=== PATIENT | male | born 1990 | race Two or more races ===

== ENCOUNTER 2017-10-09 10:02 | Emergency (ER) | payer OTHER ==
[2017-10-09] MEDS ORDERED: FENTANYL CITRATE INJ/PF 100 MCG/2 ML AMPUL IM ONE (10:33)
[2017-10-09] MEDS ORDERED: ONDANSETRON 4 MG TAB.RAPDIS PO ONE (10:33)
--- NOTE | 2017-10-09 10:35 | ER Document Report ---
ED Medical Screen (RME) - General Chief Complaint: Abdominal Pain Stated Complaint: ABDOMINAL PIAN Time Seen by Provider: 10/09/17 10:29 Notes: RAPID MEDICAL EVALUATION DISCLOSURE I have seen this patient as part of a Rapid Medical Evaluation and, if applicable, placed any initially appropriate orders. The patient will be seen and fully evaluated, including a full history and physical exam, by a provider ( in Main ED or Fast Track) when a room becomes available. 27-year-old male PMH appendectomy directed to come here by the [place] for evaluation of his abdominal pain vomiting and diarrhea. He states that the symptoms started yesterday with some mild abdominal pain and that the pain has progressively worsened. He has had associated nausea vomiting diarrhea but no fevers chills dysuria hematuria frequency. The pain is not worse with eating. He tried some Tums but this did not help. EXAM Mild to moderate epigastric TTP No peritoneal signs TRAVEL OUTSIDE OF THE [place] IN LAST 30 DAYS: No - Related Data Allergies/Adverse Reactions: No Known Allergies Allergy (Unverified 10/09/17 10:04) Past Medical History - Social History Chew tobacco use (# tins/day): No Frequency of alcohol use: Social Drug Abuse: None Renal/ Medical History: Denies: Hx Peritoneal Dialysis Past Surgical History: Reports: Hx Appendectomy Physical Exam - Vital signs Vitals: Temp Pulse Resp BP Pulse Ox 98.2 F 71 18 138/81 H 99 10/09/17 10:10/09/17 10:10/09/17 10:10/09/17 10:10/09/17 10:09 Course - Vital Signs Vital signs: Temp Pulse Resp BP Pulse Ox 98.2 F 71 18 138/81 H 99 10/09/17 10:10/09/17 10:10/09/17 10:10/09/17 10:10/09/17 10:09
[2017-10-09 11:11] LABS: ABSOLUTE EOSINOPHILS # (AUTO) 0.1 10^3/uL (0.0-0.6); ABSOLUTE LYMPHOCYTES (AUTO) 1.1 10^3/uL (0.5-4.7); ABSOLUTE MONOCYTES (AUTO) 0.3 10^3/uL (0.1-1.4); ABSOLUTE NEUT (AUTO) 7.8 10^3/uL (1.7-8.2); BASOPHILS % (AUTO) 0.2 % (0-2); EOSINOPHILS % (AUTO) 1.2 % (0-6); HEMATOCRIT 43.8 % (37.9-51.0); HEMOGLOBIN 14.9 g/dL (13.5-17.0); LYMPHOCYTES % (AUTO) 12.1 % (13-45); MEAN CORPUSCULAR HEMOGLOBIN 27.9 pg (27.0-33.4); MEAN CORPUSCULAR HGB CONC 33.9 g/dL (32.0-36.0); MEAN CORPUSCULAR VOLUME 82 fl (80-97); MONOCYTES % (AUTO) 3.6 % (3-13); PLATELET COUNT 303 10^3/uL (150-450); RED BLOOD COUNT 5.33 10^6/uL (4.35-5.55); RED CELL DISTRIBUTION WIDTH 13.5 % (11.5-14.0); SEGMENTED NEUTROPHILS % (AUTO) 82.9 % (42-78); TOTAL CELLS COUNTED % (AUTO) 100 %; WHITE BLOOD COUNT 9.3 10^3/uL (4.0-10.5)
[2017-10-09 11:19] LABS: APPEARANCE,URINE CLOUDY; BILIRUBIN,URINE NEGATIVE (NEGATIVE); COLOR,URINE YELLOW; GLUCOSE, URINE NEGATIVE (NEGATIVE); KETONES,URINE NEGATIVE (NEGATIVE); LEUKOCYTE ESTERASE,URINE NEGATIVE (NEGATIVE); NITRITE,URINE NEGATIVE (NEGATIVE); PROTEIN,URINE NEGATIVE (NEGATIVE); UROBILINOGEN,URINE NEGATIVE mg/dL (<2.0)
--- NOTE | 2017-10-09 11:32 | RADIOLOGY REPORT (SQ) ---
EXAM DESCRIPTION: U/S ABDOMEN LIMITED W/O DOP COMPLETED DATE/TIME: 10/09/2017 11:17 am REASON FOR STUDY: epigastric abd pain; eval GB pathology COMPARISON: None. TECHNIQUE: Dynamic and static grayscale images acquired of the abdomen and recorded on PACS. Additio jeanne selected color Doppler and spectral images recorded. LIMITATIONS: Suboptimal visualization. FINDINGS: PANCREAS: Not visualized. LIVER: No masses. Echotexture normal. LIVER VASCULATURE: Normal directional flow of the main portal vein and hepatic veins. GALLBLADDER: No stones. Normal wall thickness. No pericholecystic fluid. ULTRASOUND-DETECTED STEPHENS'S SIGN: Negative. INTRAHEPATIC DUCTS AND COMMON DUCT: CBD and intrahepatic ducts normal caliber. No filling defects. INFERIOR VENA CAVA: Normal flow. AORTA: No aneurysm. RIGHT KIDNEY: Normal size. Normal echogenicity. No solid or suspicious masses. No hydronephrosis. No calcifications. PERITONEAL AND RIGHT PLEURAL SPACE: No ascites or effusions. OTHER: No other significant findings. IMPRESSION: Negative suboptimal right upper quadrant ultrasound. TECHNICAL DOCUMENTATION: JOB ID: [id number] [employer]- All Rights Reserved Reading location - IP/workstation name: [email or web address]
--- NOTE | 2017-10-09 11:37 | ER Document Report ---
ED GI/ - General Chief Complaint: Abdominal Pain Stated Complaint: ABDOMINAL PIAN Time Seen by Provider: 10/09/17 10:29 Mode of Arrival: Ambulatory Information source: Patient Notes: 27 yo male c/o epigastric abd pain with vomiting and diarrhea since last night. No fever or chlls. No recent antibitoics. Hx GERD. Drinks 12 pack 4 times a week. TRAVEL OUTSIDE OF THE [place] IN LAST 30 DAYS: No - Related Data Allergies/Adverse Reactions: No Known Allergies Allergy (Unverified 10/09/17 10:04) Past Medical History - General Information source: Patient - Social History Smoking Status: Never Smoker Chew tobacco use (# tins/day): No Frequency of alcohol use: Heavy Drug Abuse: None Lives with: Family Family History: Reviewed & Not Pertinent Patient has suicidal ideation: No Patient has homicidal ideation: No - Medical History Medical History: Negative Renal/ Medical History: Denies: Hx Peritoneal Dialysis Past Surgical History: Reports: Hx Appendectomy Review of Systems - Review of Systems Constitutional: No symptoms reported EENT: No symptoms reported Cardiovascular: No symptoms reported Respiratory: No symptoms reported Gastrointestinal: See HPI Genitourinary: No symptoms reported Male Genitourinary: No symptoms reported Musculoskeletal: No symptoms reported Skin: No symptoms reported Hematologic/Lymphatic: No symptoms reported Neurological/Psychological: No symptoms reported Physical Exam - Vital signs Vitals: Temp Pulse Resp BP Pulse Ox 98.2 F 71 18 138/81 H 99 10/09/17 10:09 10/09/17 10:09 10/09/17 10:09 10/09/17 10:09 10/09/17 10:09 Interpretation: Normal - General General appearance: Appears well, Alert - HEENT Head: Normocephalic, Atraumatic Eyes: Normal Pupils: PERRL Mucous membranes: Dry Neck: Supple. No: Lymphadenopathy - Respiratory Respiratory status: No respiratory distress Chest status: Nontender Breath sounds: Normal Chest palpation: Normal - Cardiovascular Rhythm: Regular Heart sounds: Normal auscultation Murmur: No - Abdominal Inspection: Normal Distension: No distension Bowel sounds: Normal Tenderness: Tender - epigastrum Organomegaly: No organomegaly. No: Hepatomegaly - Back Back: Normal, Nontender. No: CVA tenderness - Extremities General upper extremity: Normal inspection, Nontender, Normal color, Normal ROM , Normal temperature General lower extremity: Normal inspection, Nontender, Normal color, Normal ROM , Normal temperature, Normal weight bearing. No: Melissa's sign - Neurological Neuro grossly intact: Yes Cognition: Normal Orientation: AAOx4 Dwight Coma Scale Eye Opening: Spontaneous Lefty Coma Scale Verbal: Oriented Lefty Coma Scale Motor: Obeys Commands Lefty Coma Scale Total: 15 Speech: Normal Motor strength normal: LUE, RUE, LLE, RLE Sensory: Normal - Psychological Associated symptoms: Normal affect, Normal mood - Skin Skin Temperature: Warm Skin Moisture: Dry Skin Color: Normal Skin irregularity: negative: Rash Course - Re-evaluation Re-evalutation: 10/09/17 12:30 IV infusing he feels much better after the medicines. labs and US negative. 10/10/17 07:49 - Vital Signs Vital signs: Temp Pulse Resp BP Pulse Ox 98.2 F 78 16 128/74 H 100 10/09/17 13:17 10/09/17 13:17 10/09/17 13:17 10/09/17 13:17 10/09/17 13:17 - Laboratory Result Diagrams: 10/09/17 10:42 10/09/17 10:42 Laboratory results interpreted by me: 10/09/17 10/09/17 10:42 10:42 Seg Neutrophils % 82.9 H Lymphocytes % 12.1 L Total Protein 8.8 H Discharge - Discharge Clinical Impression: Epigastric abdominal pain, Excessive alcohol use, Gastritis, Vomiting and diarrhea Condition: Good Disposition: HOME, SELF-CARE Instructions: Antinausea Medication ([facility]), Diarrhea, Nonspecific ([facility]), Evaluation of Upper Abdominal Pain ([facility]), Gastritis ([facility]), Nausea or Vomiting, Nonspecific ([facility]), Prilosec (Acid Pump Inhibitor) ([facility]) Additional Instructions: 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
[2017-10-09 11:44] LABS: ALANINE AMINOTRANSFERASE 39 U/L (21-72); ALBUMIN 4.8 g/dL (3.5-5.0); ALKALINE PHOSPHATASE 78 U/L (38-126); ANION GAP 15 (5-19); ASPARTATE AMINO TRANSFERASE 30 U/L (17-59); BILIRUBIN,DIRECT 0.3 mg/dL (0.0-0.4); BILIRUBIN,TOTAL 0.5 mg/dL (0.2-1.3); BLOOD UREA NITROGEN 13 mg/dL (7-20); CALCIUM 10.1 mg/dL (8.4-10.2); CARBON DIOXIDE 27 mmol/L (22-30); CHLORIDE 101 mmol/L (98-107); GLUCOSE 109 mg/dL (75-110); LIPASE 53.9 U/L (23-300); POTASSIUM 4.3 mmol/L (3.6-5.0); SODIUM 142.6 mmol/L (137-145); TOTAL PROTEIN 8.8 g/dL (6.3-8.2)
[2017-10-09] MEDS ORDERED: LANSOPRAZOLE 30 MG TAB.RAP.DR PO ONE (11:57)
[2017-10-09] MEDS ORDERED: LIDOCAINE 2% VISCOUS SOLN 20 ML UDCUP PO ONE (11:57)
[2017-10-09] MEDS ORDERED: MAG HYDROX/AL HYDROX/SIMETH SUSP 30 ML UDCUP PO ONE (11:57)
[2017-10-09] MEDS ORDERED: NORMAL SALINE 1000 ML 2,000 ML IV ONE (12:02)
[2017-10-09 13:18] VITALS: BP 128/74
== END 2017-10-09 13:20 | disposition home or self-care (01) ==
LOC: ER 10:02
DX: R10.13 Epigastric pain (principal); K29.70 Gastritis, unspecified, without bleeding; R11.10 Vomiting, unspecified; R19.7 Diarrhea, unspecified; Z72.89 Other problems related to lifestyle
CPT/HCPCS: 99284; 96372; 96360; 36415; 83690; 85025; 80053; 81001; 76705; S0119; J3010; J3490; J7030

== ENCOUNTER 2017-10-10 00:23 | Emergency (ER) | payer OTHER ==
[2017-10-10] MEDS ORDERED: SUCRALFATE SUSP 1 GM/10 ML UDCUP PO ONE (01:21)
[2017-10-10] MEDS ORDERED: LIDOCAINE 2% VISCOUS SOLN 20 ML UDCUP PO ONE (01:21)
[2017-10-10] MEDS ORDERED: METOCLOPRAMIDE HCL ORAL SOLN 10 MG/10 ML UDCUP PO ONE (01:21)
[2017-10-10] MEDS ORDERED: MAG HYDROX/AL HYDROX/SIMETH SUSP 30 ML UDCUP PO ONE (01:21)
--- NOTE | 2017-10-10 01:26 | ER Document Report ---
ED GI/ - General Chief Complaint: Abdominal Pain Stated Complaint: ABDOMINAL PAIN Time Seen by Provider: 10/10/17 01:14 Notes: The patient is a 27-year-old male, past medical history gastritis, appendectomy , presents with 2 days of epigastric pain, nausea and vomiting. He was seen earlier in the day for similar symptoms, given a GI cocktail and was feeling much better. His blood work was normal earlier today. The symptoms returned tonight. He took omeprazole, Prevacid and Tums earlier tonight without much relief of his symptoms. The symptoms started after drinking orange juice and patient does drink alcohol. Patient denies diarrhea, fevers, back pain, right upper quadrant abdominal pain or hematemesis. TRAVEL OUTSIDE OF THE [place] IN LAST 30 DAYS: No - Related Data Allergies/Adverse Reactions: No Known Allergies Allergy (Unverified 10/09/17 10:04) Past Medical History - General Information source: Patient - Social History Smoking Status: Unknown if Ever Smoked Frequency of alcohol use: Occasional Family History: Reviewed & Not Pertinent Renal/ Medical History: Denies: Hx Peritoneal Dialysis Past Surgical History: Reports: Hx Appendectomy Review of Systems - Review of Systems Notes: REVIEW OF SYSTEMS: CONSTITUTIONAL: -fevers, -chills EENT: -eye pain, -difficulty swallowing, -nasal congestion CARDIOVASCULAR: -chest pain, -syncope. RESPIRATORY: -cough, -SOB GASTROINTESTINAL: +epigastric abdominal pain, +nausea, +vomiting, +diarrhea GENITOURINARY: -dysuria, -hematuria MUSCULOSKELETAL: -back pain, -neck pain SKIN: -rash or skin lesions. HEMATOLOGIC: -easy bruising or bleeding. LYMPHATIC: -swollen, enlarged glands. NEUROLOGICAL: -altered mental status or loss of consciousness, -headache, - neurologic symptoms PSYCHIATRIC: -anxiety, -depression. ALL OTHER SYSTEMS REVIEWED AND NEGATIVE. Physical Exam - Vital signs Vitals: Temp Pulse Resp BP Pulse Ox 97.9 F 72 18 151/107 H 100 10/10/17 00:42 10/10/17 00:42 10/10/17 00:42 10/10/17 00:42 10/10/17 00:42 - Notes Notes: PHYSICAL EXAMINATION: GENERAL: Well-appearing, well-nourished and in no acute distress. HEAD: Atraumatic, normocephalic. EYES: Pupils equal round and reactive to light, extraocular movements intact, sclera anicteric, conjunctiva are normal. ENT: nares patent, oropharynx clear without exudates. Moist mucous membranes. NECK: Normal range of motion, supple without lymphadenopathy LUNGS: Breath sounds clear to auscultation bilaterally and equal. No wheezes rales or rhonchi. HEART: Regular rate and rhythm without murmurs ABDOMEN: Soft, mild epigastric tenderness, normoactive bowel sounds. No guarding, no rebound. No masses appreciated. EXTREMITIES: Normal range of motion, no pitting or edema. No cyanosis. NEUROLOGICAL: Cranial nerves grossly intact. Normal speech, normal gait. Normal sensory and motor exams. PSYCH: Normal mood, normal affect. SKIN: Warm, Dry, normal turgor, no rashes or lesions noted. Course - Re-evaluation Re-evalutation: Patient with 2 days of epigastric pain. He had blood work completed earlier today, which was unremarkable, including a normal lipase. His pain resolved after a GI cocktail and he is requesting another one. Instructed him about dietary modifications, including less acidic food/drinks and less alcohol, and he understands. Provided him with follow-up with GI for suspected gastric ulcer or gastritis. Given very strict return precautions and he understands. - Vital Signs Vital signs: Temp Pulse Resp BP Pulse Ox 97.9 F 72 18 151/107 H 100 10/10/17 00:42 10/10/17 00:42 10/10/17 00:42 10/10/17 00:42 10/10/17 00:42 Discharge - Discharge Clinical Impression: Epigastric abdominal pain Condition: Stable Disposition: HOME, SELF-CARE Additional Instructions: Increase your omeprazole to twice a day before breakfast and before dinner. Add the Carafate as needed. Try to cut down on your orange juice, coffee and alcohol to help with your stomach irritation and possible ulcer. Follow-up with the GI doctor. Gastritis You have an inflammation of the stomach called gastritis. This commonly causes upper abdominal pain, nausea, and vomiting. In severe cases, bleeding of the stomach lining can occur. Gastritis can be caused by bacteria or viruses , alcohol, or stomach-irritating drugs. Begin with sips of clear liquids. Take increasing amounts of fluid over the first 24 hours. Then start small amounts of bland foods (such as dry toast , applesauce, mashed potato). Gradually resume your usual diet. You should take antacids every two hours until the pain has subsided. Acid -suppressing drugs may be prescribed as well. Avoid aspirin, caffeine, tobacco , and alcohol. If the abdominal pain worsens, or there is evidence of major bleeding in the stomach (such as black, tarry stool, bloody or black vomit, or lightheadedness), you should return immediately. Call the doctor if you aren't improved in 24 to 36 hours. Prescriptions: Ondansetron [Zofran Odt 4 mg Tablet] 1 - 2 tab PO Q4H PRN #15 tab.rapdis PRN Reason: For Nausea/Vomiting Sucralfate [Carafate Susp 1 Gm/10 Ml Udcup] 1 gm PO Q8H PRN #30 udc PRN Reason: Forms: Elevated Blood Pressure Referrals: SHERRI VICTORIA MD [Primary Care Provider] - Follow up as needed JOANA WILKES MD [ACTIVE STAFF] - Follow up as needed
[2017-10-10 01:38] VITALS: BP 159/97
== END 2017-10-10 02:31 | disposition home or self-care (01) ==
LOC: ER 00:23
DX: R10.13 Epigastric pain (principal); R11.2 Nausea with vomiting, unspecified; R19.7 Diarrhea, unspecified; Z90.49 Acquired absence of other specified parts of digestive tract; Z87.19 Personal history of other diseases of the digestive system
CPT/HCPCS: 99284; J3490